=== PATIENT | female | born 1935 | race Caucasian/White ===

== ENCOUNTER 2016-10-05 23:55 | Outpatient (CLI) | payer MEDICARE, BC | END 2016-10-05 23:56 | disposition critical access hospital (66) | LOC: EMS 23:55 | PROVIDERS: ATTEND Surgery | DX: R07.9 Chest pain, unspecified (principal) | CPT/HCPCS: A0425; A0427 ==

== ENCOUNTER 2016-10-06 00:07 | Observation (INO) | payer MEDICARE, BC ==
--- NOTE | 2016-10-06 00:07 | ED Physician Documentation ---
PD HPI CHEST PAIN - Stated complaint Stated Complaint: CP - History obtained from History obtained from: Patient - History of Present Illness Timing - onset: Enter time (20:00), Today Timing - onset during: Rest Timing - duration: Hours Timing - details: Abrupt onset, Waxing and waning Pain level max: 6 Pain level now: 6 Quality: Pain Location: Substernal Radiation: Back Improved by: Nothing Worsened by: Inspiration, Palpation Associated symptoms: General Weakness. No: Shortness of air, Diaphoresis, Nausea, Vomiting, Feeling faint / dizzy, Palpitations, Cough Similar symptoms before: Has not had sx before Recently seen: Not recently seen Review of Systems Constitutional: reports: Reviewed and negative Eyes: reports: Reviewed and negative Ears: reports: Reviewed and negative Nose: reports: Reviewed and negative Throat: reports: Reviewed and negative Cardiac: reports: Chest pain / pressure. denies: Palpitations, Calf pain Respiratory: reports: Reviewed and negative GI: reports: Reviewed and negative : denies: Dysuria, Frequency Neurologic: reports: Generalized weakness. denies: Focal weakness, Numbness PD PAST MEDICAL HISTORY - Past Medical History Past Medical History: Yes Cardiovascular: Hypertension - Past Surgical History Past Surgical History: No - Present Medications Home Medications: Ambulatory Orders Medication Instructions Recorded Confirmed Losartan [Cozaar] 25 mg ORAL DAILY 03/22/14 10/06/16 Metoprolol Tartrate 12.5 mg ORAL DAILY 03/22/14 10/06/16 Aspirin [Yusuf] 325 mg PO QID PRN #0 tablet 10/06/16 Rosuvastatin Calcium 5 mg PO QPM 10/06/16 10/06/16 - Allergies Allergies/Adverse Reactions: Allergies Allergy/AdvReac Type Severity Reaction Status Date / Time acetaminophen [From Tylenol] Allergy Unknown Verified 10/06/16 00:21 amoxicillin [Amoxicillin] Allergy Unknown Verified 10/06/16 00:21 codeine Allergy Respiratory Verified 10/06/16 00:21 doxycycline Allergy Respiratory Verified 10/06/16 00:21 doxylamine Allergy Respiratory Verified 10/06/16 00:21 erythromycin base Allergy Respiratory Verified 10/06/16 00:21 [Erythromycin Base] fluticasone propionate * Allergy Unknown Verified 10/06/16 00:21 [From Flonase] hydromorphone HCl * Allergy Unknown Verified 10/06/16 00:21 [From Dilaudid] latex Allergy Unknown Verified 10/06/16 00:21 levofloxacin Allergy Respiratory Verified 10/06/16 00:21 methadone [Methadone] Allergy Respiratory Verified 10/06/16 00:21 morphine Allergy Respiratory Verified 10/06/16 00:21 nitroglycerin Allergy Unknown Verified 10/06/16 00:21 omeprazole Allergy Respiratory Verified 10/06/16 00:21 oxycodone HCl * Allergy Respiratory Verified 10/06/16 00:21 [From OxyContin] Penicillins Allergy Respiratory Verified 10/06/16 00:21 petrolatum,white * Allergy Respiratory Verified 10/06/16 00:21 [From Petroleum Jelly] propoxyphene HCl * Allergy Respiratory Verified 10/06/16 00:21 [From Darvon] Sulfa (Sulfonamide Allergy Respiratory Verified 10/06/16 00:21 Antibiotics) tramadol Allergy Respiratory Verified 10/06/16 00:21 "all morphine derivatives" Allergy Unknown Uncoded 10/06/16 00:21 dust Allergy Unknown Uncoded 06/07/14 10:09 mold Allergy Unknown Uncoded 06/07/14 10:09 smoke Allergy Unknown Uncoded 06/07/14 10:09 PD ED PE NORMAL - Vitals Vital signs reviewed: Yes - General General: Alert and oriented X 3, No acute distress, Well developed/nourished - HEENT HEENT: Moist mucous membranes - Neck Neck: Supple, no meningeal sign - Cardiac Cardiac: RRR, No murmur, No gallop, No rub - Respiratory Respiratory: No respiratory distress, Clear bilaterally - Abdomen Abdomen: Normal bowel sounds, Soft, Non tender, Non distended - Back Back: No CVA TTP - Derm Derm: Normal color, Warm and dry - Extremities Extremities: No edema - Neuro Neuro: Alert and oriented X 3 Results - Vitals Vitals: Oxygen O2 Source [With Activity] Room air O2 Source Room air Oxygen Flow Rate 2 - EKG (time done) No standard instances Rate: Rate (enter#) (63) Rhythm: NSR [place]: Normal Intervals: Normal OR QRS: Normal Ischemia: Normal ST segments - Labs Labs: Laboratory Tests 10/06/16 10/06/16 10/06/16 00:50 00:50 00:50 WBC 8.6 RBC 3.88 L Hgb 11.4 L Hct 34.4 L MCV 88.6 MCH 29.4 MCHC 33.1 RDW 15.2 H Plt Count 218 MPV 9.6 Neut # 6.1 Lymph # 0.8 L [place] # 1.0 Eos # 0.6 Baso # 0.1 Absolute Nucleated RBC 0.00 Nucleated RBCs 0.0 PT 11.8 INR 1.0 APTT 22.0 L D-Dimer 383.6 H Sodium 138 Potassium 3.3 L Chloride 104 Carbon Dioxide 25 Anion Gap 9.0 BUN 30 H Creatinine 1.1 H Estimated GFR (MDRD) 48 L Glucose 135 H Calcium 8.6 Total Bilirubin 0.3 AST 20 ALT 14 Alkaline Phosphatase 86 Troponin I Total Protein 6.9 Albumin 3.2 Globulin 3.7 Albumin/Globulin Ratio 0.9 L Lipase 14 L 10/06/16 00:50 WBC RBC Hgb Hct MCV MCH MCHC RDW Plt Count MPV Neut # Lymph # [place] # Eos # Baso # Absolute Nucleated RBC Nucleated RBCs PT INR APTT D-Dimer Sodium Potassium Chloride Carbon Dioxide Anion Gap BUN Creatinine Estimated GFR (MDRD) Glucose Calcium Total Bilirubin AST ALT Alkaline Phosphatase Troponin I < 0.04 Total Protein Albumin Globulin Albumin/Globulin Ratio Lipase - Rads (name of study) chest xray Radiology: Prelim report reviewed, See rad report PD MEDICAL DECISION MAKING - ED course Complexity details: reviewed results, re-evaluated patient, considered differential, d/w patient, d/w family Departure - Departure Disposition: ED Place in Observation Clinical Impression: Chest pain Condition: Fair Discharge Date/Time: 10/06/16 06:56
--- NOTE | 2016-10-06 01:07 | XRAY Preliminary Report ---
Exam: XR Chest 2 View PA/LAT IMPRESSION: 1. Interstitial densities noted at the left lung base. No consolidation. 2. No pneumothorax or effusion. 3. Focal ovoid hyperdensity projects over the anterior right fourth rib possibly due to a fracture or nodule. Findings can be confirmed by CT on a nonemergent basis. [facility] SITE ID: [id number]
--- NOTE | 2016-10-06 01:10 | XRAY Report ---
EXAM: CHEST RADIOGRAPHY EXAM DATE: 10/06/2016 12:49 AM. CLINICAL HISTORY: Chest pain. COMPARISON: 04/08/2014. TECHNIQUE: 2 views. FINDINGS: Lungs/Pleura: Decreased volumes. Mild interstitial prominence is noted at the bases. No large effusio ns or pneumothorax. Mediastinum: Ectatic thoracic aorta. Stable cardiac silhouette. Other: Ovoid density measuring 1.7 cm projects over the anterior right fourth rib. EKG leads overlie the chest. IMPRESSION: 1. Interstitial densities noted at the left lung base. No consolidation. 2. No pneumothorax or effusion. 3. Focal ovoid hyperdensity projects over the anterior right fourth rib possibly due to a fracture or nodule. Findings can be confirmed by CT on a nonemergent basis. [facility] Referring Provider Line: [phone] SITE ID: [id number]
[2016-10-06 01:11] LABS: BASOPHILS # (AUTO) 0.1 10^3/uL (0.0-0.1); BASOPHILS % (AUTO) 1.1 %; EOSINOPHILS # (AUTO) 0.6 10^3/uL (0.0-0.7); EOSINOPHILS % (AUTO) 6.4 %; HCT - HEMATOCRIT 34.4 % (37.0-47.0); HGB - HEMOGLOBIN 11.4 g/dL (12.0-16.0); LYMPHOCYTES # (AUTO) 0.8 10^3/uL (1.5-3.5); LYMPHOCYTES % (AUTO) 9.8 %; MEAN CORPUSCULAR HEMOGLOBIN 29.4 pg (27.0-31.0); MEAN CORPUSCULAR HGB CONC 33.1 g/dL (32.0-36.0); MEAN CORPUSCULAR VOLUME 88.6 fL (81.0-99.0); MEAN PLATELET VOLUME 9.6 fL (7.9-10.8); MONOCYTES % (AUTO) 12.2 %; NEUTROPHILS # (AUTO) 6.1 10^3/uL (1.5-6.6); NEUTROPHILS % (AUTO) 70.5 %; RED BLOOD COUNT 3.88 10^6/uL (4.20-5.40); RED CELL DISTRIBUTION WIDTH 15.2 % (12.0-15.0); UNCORRECTED WHITE BLOOD COUNT 8.6 x10^3/uL; WHITE BLOOD COUNT 8.6 x10^3/uL (4.8-10.8)
[2016-10-06 01:18] LABS: D-DIMER 383.6 ng/mL (200.0-255.0)
[2016-10-06 01:24] LABS: PT - PROTHROMBIN TIME 11.8 secs (9.9-12.6)
[2016-10-06 01:26] LABS: ALBUMIN/GLOBULIN RATIO 0.9 (1.0-2.2); BILIRUBIN,TOTAL 0.3 mg/dL (0.2-1.0); CALCIUM 8.6 mg/dL (8.5-10.3); CREATININE 1.1 mg/dL (0.4-1.0); POTASSIUM 3.3 mmol/L (3.5-5.0); TOTAL PROTEIN 6.9 g/dL (6.7-8.2)
[2016-10-06] MEDS ORDERED: HYDROmorphone 1 MG/ML SYRINGE IVP STA ×3 (01:55→05:25)
[2016-10-06] MEDS ORDERED: HYDROmorphone 1 MG/ML SYRINGE ONE ×2 (01:59→02:50)
[2016-10-06] MEDS ORDERED: IOPAMIDOL-300 100 ML VIAL IVP ONE (02:51)
--- NOTE | 2016-10-06 03:23 | CT Preliminary Report ---
Exam: CT Chest Angio (AORTA) IMPRESSION: 1. Stable 4.1 cm ascending thoracic aneurysm. No evidence of enlargement, dissection or rupture. 2. No acute pulmonary disease. 3. Interval C7 vertebral compression fracture. Remote T7, T10, and T12 vertebral fractures. 4. Interval right third and fourth anterior and left T11 posterior rib fractures. [facility] SITE ID: [id number]
--- NOTE | 2016-10-06 03:26 | CT Report ---
<H1.> EXAM: CT ANGIOGRAM CHEST EXAM DATE: 10/06/2016 02:51 AM. CLINICAL HISTORY: Chest pain, h/o thoracic aortic aneurysm. COMPARISONS: None. TECHNIQUE: Routine axial helical CT angiographic imaging was performed through the chest, abdomen, and pelvis. I V Contrast: 100 mL Isovue 300. Reconstructions: Coronal, sagittal reconstructions of the chest. In accordance with CT protocol optimization, one or more of the following dose reduction techniques w ere utilized for this exam: automated exposure control, adjustment of mA and/or KV based on patient s ize, or use of iterative reconstructive technique. FINDINGS: Vascular Structures: Again there is dilatation of the ascending thoracic aorta which measures up to 4 .1 cm in diameter, unchanged. There is no evidence of dissection. The visualized pulmonary, mesenteri c, and solid organ vascular structures are also within normal limits. Lungs/Pleura: No consolidation, nodules, or edema. There is bilateral dependent atelectasis. No effus ions or pneumothorax. Mediastinum: Normal. No cardiac enlargement or adenopathy. Upper abdominal cavity: Arterial phase imaging of upper abdominal organs normal. Status post cholecys tectomy. Mild celiac origin stenosis.. No free fluid, free air, or acute inflammatory process. Bones: Again there is osteopenia in patient status post prior T11 vertebral augmentation. There is st able wedging deformity of T12 vertebral body. There is new sclerosis involving T8 and T9 inferior end plates. There is new intra-right loss and sclerosis of superior endplate of C7. There are multiple he aled posterior right-sided rib fractures. There is a healed left posterior T11 rib fracture. There ar e healed right third and fourth anterior rib fractures. Other: None. IMPRESSION: 1. Stable 4.1 cm ascending thoracic aneurysm. No evidence of enlargement, dissection or rupture. 2. No acute pulmonary disease. 3. Interval C7 vertebral compression fracture. Remote T7, T10, and T12 vertebral fractures. 4. Interval right third and fourth anterior and left T11 posterior rib fractures. [facility] Referring Provider Line: [phone] SITE ID: [id number]
[2016-10-06] MEDS ORDERED: MAG HYDROX/AL HYDROX/SIMETH 30 ML UDC PO STA (03:56)
[2016-10-06] MEDS ORDERED: LIDOCAINE VISCOUS 2% 15 ML UDC MM STA (03:56)
[2016-10-06] MEDS ORDERED: LIDOCAINE VISCOUS 2% 15 ML UDC MM ONE (04:00)
[2016-10-06] MEDS ORDERED: MAG HYDROX/AL HYDROX/SIMETH 30 ML UDC ONE (04:00)
[2016-10-06] MEDS ORDERED: ASPIRIN 325 MG TABLET PO PRN (05:24)
[2016-10-06] MEDS ORDERED: ACETAMINOPHEN 325 MG TABLET PO PRN (05:25)
[2016-10-06] MEDS ORDERED: SODIUM CHLORIDE FLUSH 0.9% 10 ML SYRINGE IVP PRN (05:25)
[2016-10-06] MEDS ORDERED: ONDANSETRON ODT 4 MG TABLET TL PRN (05:25)
[2016-10-06] MEDS ORDERED: IBUPROFEN 600 MG TABLET PO STA (05:41)
[2016-10-06] MEDS ORDERED: HYDROmorphone 1 MG/ML SYRINGE IVP PRN (05:43)
--- NOTE | 2016-10-06 05:57 | HISTORY & PHYSICAL EXAMINATION ---
Chief Complaint - Chief Complaint Chief Complaint: Chest pain radiating to the back Chest Pain Admission HPI - Admitted From Admitted from: ED - History Obtained From Records Reviewed: Old records reviewed History obtained from: Patient, Family, Other (ER M.D.) Exam limitations: No limitations, Other (heart of hearing) - History of Present Illness HPI Comment/Other: this 81-year-old female presents to the emergency room complaining of chest pain. She and her report that she developed pain in her lower sternum around 8 PM last night. She describes it as 8/10, and non-radiating, although she also has back pain, which she feels is unrelated.she notes the pain is worse with deep breathing,, but describes it as aching in nature it has been unrelenting since last night. Aspirin last night did not seem to help much. GI cocktail had no impact. We are unable to give her nitroglycerin regarding allergies. She recently resumed treatment for multiple myeloma, with daily Revlimid, 3 weeks on, 1 week off. Her reports she gets Decadron every Saturday, and IV Zometa every 3 months. She is followed by Dr. Jose Sotelo at [facility]. Otherwise, she reports chronic dizziness and ear pain related to Mnire's disease, as well as hearing loss. She denies headache, new eye symptoms. Her throat is mildly sore today, but she reports no change in chronic cough. She denies other chest discomfort, or radiation of her pain. She denies recent reflux. She did have some abdominal discomfort today after IV dye, which resolved after GI cocktail. She denies recent nausea or vomiting. She has chronic intermittent diarrhea and constipation. She denies dysuria. she does not report swollen glands,, or new joint pain or swelling,, or skin rashes. she cannot recall her symptoms from when she had a previous PE. She does not think current symptoms are similar to previous OR. ER workup also shows low potassium and mild dehydration. The patient's reports she is terrible about drinking adequate fluids, complaining that most bother her stomach. Past medical history: Left femur fracture, May 2014, also right hip fracture. History of UTI History of multiple myeloma History of DVT and PE History of asthma Distant history of coronary artery disease, OR Osteoporosis Aortic aneurysm Herpes zoster past surgical history: Bilateral ORIF of hips, cholecystectomy, spinal surgery, hysterectomy medications: metoprolol 25 mg twice a day Losartan 25 mg daily Revlamid 10 mg daily Decadron 40 mg Aspirin 325 mg 4 times a day when necessary Aspirin 81 mg daily B complex daily Calcium plus D2 daily Beta Zometa IV every 3 months Crestor daily Allergies: Acetaminophen Codeine oxycodone Methadone Morphine Tramadol Amoxicillin Darvon Penicillin Sulfa Doxycycline Erythromycin Levaquin doxylamine Omeprazole Petroleum Dust Mold smoke Latex Social history: The patient was born in [place]. Worked for [employer]. denies history of tobacco, alcohol, drug use. She is and had 3 children. Family history: Positive for heart disease in her father.,she says she really does not know her biological family or their health history. 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: positive: Hysterectomy Social & Family Hx - Social History Does the pt smoke?: No Smoking Status: Never smoker Does the pt drink ETOH?: No Does the pt have substance abuse?: No - POLST Patient has POLST: No Meds/Allgy - Home Medications Home Medications: Ambulatory Orders Medication Instructions Recorded Confirmed Aspirin [Yusuf] 325 mg ORAL QID PRN 03/22/14 10/06/16 Beta-Carotene [Beta Carotene] 1 tab ORAL DAILY 03/22/14 10/06/16 Calcium Carbonate/Vitamin D3 2 tab ORAL DAILY 03/22/14 10/06/16 [Calcium 600 + Vit D3 Tablet] Losartan [Cozaar] 25 mg ORAL DAILY 03/22/14 10/06/16 Metoprolol Tartrate 25 mg ORAL BID 03/22/14 10/06/16 Vitamin B Complex Vit C No.4 1 tab ORAL DAILY 03/22/14 10/06/16 [Super B Complex] Dexamethasone [Decadron] 40 mg PO ONCE 10/06/16 10/06/16 Lenalidomide [Revlimid] 10 mg ORAL ONCE 10/06/16 10/06/16 - Allergies Allergies/Adverse Reactions: Allergies Allergy/AdvReac Type Severity Reaction Status Date / Time acetaminophen [From Tylenol] Allergy Unknown Verified 10/06/16 00:21 amoxicillin [Amoxicillin] Allergy Unknown Verified 10/06/16 00:21 codeine Allergy Respiratory Verified 10/06/16 00:21 doxycycline Allergy Respiratory Verified 10/06/16 00:21 doxylamine Allergy Respiratory Verified 10/06/16 00:21 erythromycin base Allergy Respiratory Verified 10/06/16 00:21 [Erythromycin Base] fluticasone propionate * Allergy Unknown Verified 10/06/16 00:21 [From Flonase] hydromorphone HCl * Allergy Unknown Verified 10/06/16 00:21 [From Dilaudid] latex Allergy Unknown Verified 10/06/16 00:21 levofloxacin Allergy Respiratory Verified 10/06/16 00:21 methadone [Methadone] Allergy Respiratory Verified 10/06/16 00:21 morphine Allergy Respiratory Verified 10/06/16 00:21 nitroglycerin Allergy Unknown Verified 10/06/16 00:21 omeprazole Allergy Respiratory Verified 10/06/16 00:21 oxycodone HCl * Allergy Respiratory Verified 10/06/16 00:21 [From OxyContin] Penicillins Allergy Respiratory Verified 10/06/16 00:21 petrolatum,white * Allergy Respiratory Verified 10/06/16 00:21 [From Petroleum Jelly] propoxyphene HCl * Allergy Respiratory Verified 10/06/16 00:21 [From Darvon] Sulfa (Sulfonamide Allergy Respiratory Verified 10/06/16 00:21 Antibiotics) tramadol Allergy Respiratory Verified 10/06/16 00:21 "all morphine derivatives" Allergy Unknown Uncoded 10/06/16 00:21 dust Allergy Unknown Uncoded 06/07/14 10:09 mold Allergy Unknown Uncoded 06/07/14 10:09 smoke Allergy Unknown Uncoded 06/07/14 10:09 Exam - Vital Signs Reviewed Vital Signs: Yes Vital Signs: Vital Signs x48h Temp Pulse Resp BP BP BP Pulse Ox 10/06/16 04:45 54 L 15 113/50 L 91 L 10/06/16 04:06 65 18 103/46 L 95 10/06/16 03:03 58 L 21 128/56 L 95 10/06/16 02:44 64 17 131/60 H 98 10/06/16 02:08 65 20 100/49 L 92 10/06/16 01:40 66 18 121/54 L 100 10/06/16 00:24 69 21 114/54 L 137/61 H 114/54 L 95 10/06/16 00:08 36.9 C 68 20 137/61 H 97 on exam, she is a well-developed and well-nourished elderly female in no obvious distress. She is extremely hard of hearing.. Head: Normocephalic, atraumatic. Eyes: PERR LA, EOMI, anicteric, normal conjunctiva. Ears: Normal TMs and canals, with significant hearing loss. Pharynx: Teeth are in good repair. Posterior pharynx appears normal. Neck: Is supple, without obvious lymphadenopathy, JVD, thyromegaly, bruits. Cardiac exam: Shows regular rate and rhythm, with normal S1 and S2,, without obvious murmurs, rubs, gallops. lower sternum is quite tender to palpation. Lungs: breath sounds Are somewhat decreased at the bases, related to patient's reluctance to deep breathe.otherwise, lungs are clear, without obvious rales, rhonchi, wheezes. Abdomen: Is soft, and minimally tender, without obvious masses.. Bowel sounds are active. There is no guarding or rebound. Extremities: Show no cyanosis, clubbing, edema. Pulses are intact. Neurologic exam: The patient is alert and oriented. Cranial nerves and motor exam are grossly nonfocal. Skin exam: Shows no obvious rashes or other worrisome lesions. Results - Lab Results Fish Bones: 10/06/16 00:50 10/06/16 00:50 Other Lab Results: Lab Results x24hrs 10/06/16 10/06/16 10/06/16 Range/Units 00:50 00:50 00:50 WBC (4.8-10.8) x10^3/uL RBC (4.20-5.40) 10^6/uL Hgb (12.0-16.0) g/dL Hct (37.0-47.0) % MCV (81.0-99.0) fL MCH (27.0-31.0) pg MCHC (32.0-36.0) g/dL RDW (12.0-15.0) % Plt Count (130-450) 10^3/uL MPV (7.9-10.8) fL Neut # (1.5-6.6) 10^3/uL Lymph # (1.5-3.5) 10^3/uL [place] # (0.0-1.0) 10^3/uL Eos # (0.0-0.7) 10^3/uL Baso # (0.0-0.1) 10^3/uL Absolute Nucleated RBC x10^3/uL Nucleated RBCs /100WBC PT 11.8 (9.9-12.6) secs INR 1.0 (0.8-1.2) APTT 22.0 L (24.9-33.3) secs D-Dimer 383.6 H (200.0-255.0) ng/mL Sodium 138 (135-145) mmol/L Potassium 3.3 L (3.5-5.0) mmol/L Chloride 104 (101-111) mmol/L Carbon Dioxide 25 (21-32) mmol/L Anion Gap 9.0 (6-13) BUN 30 H (6-20) mg/dL Creatinine 1.1 H (0.4-1.0) mg/dL Estimated GFR (MDRD) 48 L (>89) Glucose 135 H (70-100) mg/dL Calcium 8.6 (8.5-10.3) mg/dL Total Bilirubin 0.3 (0.2-1.0) mg/dL AST 20 (10-42) IU/L ALT 14 (10-60) IU/L Alkaline Phosphatase 86 (42-121) IU/L Troponin I < 0.04 (<0.49) ng/mL Total Protein 6.9 (6.7-8.2) g/dL Albumin 3.2 (3.2-5.5) g/dL Globulin 3.7 (2.1-4.2) g/dL Albumin/Globulin Ratio 0.9 L (1.0-2.2) Lipase 14 L (22-51) U/L 10/06/16 Range/Units 00:50 WBC 8.6 (4.8-10.8) x10^3/uL RBC 3.88 L (4.20-5.40) 10^6/uL Hgb 11.4 L (12.0-16.0) g/dL Hct 34.4 L (37.0-47.0) % MCV 88.6 (81.0-99.0) fL MCH 29.4 (27.0-31.0) pg MCHC 33.1 (32.0-36.0) g/dL RDW 15.2 H (12.0-15.0) % Plt Count 218 (130-450) 10^3/uL MPV 9.6 (7.9-10.8) fL Neut # 6.1 (1.5-6.6) 10^3/uL Lymph # 0.8 L (1.5-3.5) 10^3/uL [place] # 1.0 (0.0-1.0) 10^3/uL Eos # 0.6 (0.0-0.7) 10^3/uL Baso # 0.1 (0.0-0.1) 10^3/uL Absolute Nucleated RBC 0.00 x10^3/uL Nucleated RBCs 0.0 /100WBC PT (9.9-12.6) secs INR (0.8-1.2) APTT (24.9-33.3) secs D-Dimer (200.0-255.0) ng/mL Sodium (135-145) mmol/L Potassium (3.5-5.0) mmol/L Chloride (101-111) mmol/L Carbon Dioxide (21-32) mmol/L Anion Gap (6-13) BUN (6-20) mg/dL Creatinine (0.4-1.0) mg/dL Estimated GFR (MDRD) (>89) Glucose (70-100) mg/dL Calcium (8.5-10.3) mg/dL Total Bilirubin (0.2-1.0) mg/dL AST (10-42) IU/L ALT (10-60) IU/L Alkaline Phosphatase (42-121) IU/L Troponin I (<0.49) ng/mL Total Protein (6.7-8.2) g/dL Albumin (3.2-5.5) g/dL Globulin (2.1-4.2) g/dL Albumin/Globulin Ratio (1.0-2.2) Lipase (22-51) U/L a CT angiogram chest: Stable 4.1 cm descending thoracic aneurysm, without evidence of dissection. No acute pulmonary disease Interval C7 vertebral compression fracture.. Remote T7, T10, T12 fractures. Interval right third and fourth anterior and left T11 posterior rib fracture, healed. bilateral deep tendon atelectasis chest x-ray: A focal ovoid density over the right fourth rib,, likely due to fracture.interstitial prominence noted at lung bases. EKG: Shows normal sinus rhythm at a rate of 63, normal axis, no acute ischemic changes are noted. ARRA - Anticipated LOS Anticipated Stay Length: Less than 2 midnights - AMI - Statin at Admit Aspirin Prescribed on Admit: Yes - DVT/VTE - Prophylaxis VTE/DVT Device ordered at admit?: Yes CP/CHF Plan - Echo Plan to order an echo?: No - Plan Patient Problems: All Active Problems Anemia (Acute) Chest pain (Acute) Fall on same level from slipping, tripping or stumbling (Acute) Fracture, intertrochanteric, left femur (Acute) Headache (Acute) Herpes zoster (Acute) Hypotension (Acute) Multiple myeloma (Acute) Shoulder pain, left (Acute) Tachycardia (Acute) UTI (lower urinary tract infection) (Acute) Plan: #1. Chest pain. This patient presents with chest pain which has associated chest wall tenderness components. She has known coronary disease history, as well as a history of aneurysm. she does have multiple myeloma, and evidence of numerous rib and vertebral fractures on CAT scan. These may be playing a role in her chest pain. also past history of DVT/PE. her physical exam seems most consistent with costochondritis.however, she could certainly have myeloma related bone disease, and or pain related to chemotherapy regimen.. -admit to observation, telemetry. -Repeat cardiac enzymes and EKG to rule out OR. -consider contacting oncology,, to see if increased steroids might be in order. Continue when necessary extra doses aspirin, as NSAIDs may not be appropriate for her. -She could also possibly have esophagitis, but does not give a great history for this. -Dilaudid was tolerated in the emergency room, despite numerous allergies. use Dilaudid and aspirin when necessary. -her notes she does take Crestor at home for history of coronary disease. -Continue losartan and metoprolol. And aspirin. #2. Renal. Evidence of mild dehydration and hypokalemia. correct With IV fluids. repeat labs at noon. -patient is encouraged to come up with other ways to keep herself hydrated. #3. Pulmonary. Positive d-dimer,, but CT scan did not show PE. Continue daily aspirin. -Reported history of asthma. She does not appear to use medications at home. #4.multiple myeloma. Continue Revlimid.also Decadron, and Zometa. Followup with oncology. #5. Osteoporosis. -continue Zometa. Continue calcium and vitamin D. --History of numerous rib, spine, hip fractures. #6. History of herpes zoster. watch for rash, as this may be contributing to chest pain. #7. DVT prophylaxis: Subcutaneous heparin. Continue aspirin. Mobilize. #8. CODE STATUS: patient would like to be a full code for now. This was reviewed with she and her . They believe she also has a living will,, but cannot recall exactly what it says. #9. Mnire's disease. Stable. #10. GI. Pepcid for GI prophylaxis. this visit took approximately 60 minutes, to review her old records, review her case with the ER Shannon,, interviewed the patient and her husba, examiner, and write orders.
[2016-10-06] MEDS ORDERED: POTASSIUM CHLORIDE INJ 40 MEQ in SODIUM CHLORIDE 0.45% 1,000 ML IV SCH (06:00)
[2016-10-06 07:07] LABS: CALCIUM 8.2 mg/dL (8.5-10.3); CREATININE 1.2 mg/dL (0.4-1.0); POTASSIUM 3.9 mmol/L (3.5-5.0)
[2016-10-06] MEDS: HEPARIN 5,000 UNIT/ML VIAL SUBQ SCH (08:18)
[2016-10-06] MEDS: FAMOTIDINE 20 MG TABLET PO SCH ×2 (08:19→09:11)
[2016-10-06] MEDS: SODIUM CHLORIDE FLUSH 0.9% 10 ML SYRINGE IVP SCH ×2 (08:19→13:14)
[2016-10-06] MEDS: METOPROLOL TARTRATE 25 MG TABLET PO SCH ×2 (08:19→09:06)
[2016-10-06] MEDS: LOSARTAN 50 MG TABLET PO SCH ×2 (08:19→09:11)
[2016-10-06] MEDS ORDERED: POLYETHYLENE GLYCOL 3350 17 GM PACKET PO SCH (09:00)
[2016-10-06] MEDS ORDERED: CALCIUM CARBONATE PO SCH (09:00)
[2016-10-06] MEDS ORDERED: VITAMIN D3 PO SCH (09:00)
[2016-10-06] MEDS ORDERED: BETA CAROTENE PO SCH (09:00)
[2016-10-06] MEDS ORDERED: LIDOCAINE PATCH 5% TOP PRN (12:37)
[2016-10-06 13:33] VITALS: BP 99/60
--- NOTE | 2016-10-06 15:16 | Discharge Plan ---
Discharge Plan Disposition: 01 Home, Self Care Condition: Fair Diet: Regular Activity Restrictions: Activity as Tolerated Shower Restrictions: No Driving Restrictions: No Additional Instructions or Follow Up instructions: Use heat of and on 30-60 min on and 2HRS off While awake. Take Tylenol or Ibuprofen as needed. F/U with your PCP in the next week. No Smoking: If you smoke, Please STOP! Call for help. Follow-up with: Luis Antonio Mckeon MD [Primary Care Provider] - 1 Week
--- NOTE | 2016-10-06 22:12 | DISCHARGE SUMMARY ---
DATE OF ADMISSION: 10/06/2016 DATE OF DISCHARGE: 10/06/2016 PRIMARY CARE PHYSICIAN: Dr. Mckeon ADMISSION DIAGNOSES 1. Chest pain. 2. Mild dehydration and hypokalemia. 3. Positive D-dimer but CTA negative. 4. Multiple myeloma. 5. Osteoporosis. 6. Herpes zoster. 7. Meniere disease. DISCHARGE DIAGNOSES 1. Chest pain, myocardial infarction ruled out. 2. Dehydration and hypokalemia, improved. 3. Multiple myeloma. 4. Osteoporosis. 5. History of herpes zoster. 6. Meniere disease, quiescent. SPECIAL PROCEDURES: CTA shows no pulmonary embolus. CONSULTATIONS: None. HOSPITAL COURSE AND MANAGEMENT: Initial presentation, hospital plan are well described in history and physical by Dr. Fernandez, see copy of same. The patient had continued chest pain, especially with kaila p breath. The patient had serial enzymes, troponin negative x3. The patient's pain was central upper chest with right focal tenderness described as the location of pain. The patient has severe hearing d eficit and needed to be queried multiple times to be assured of a reliable answer. The patient's husb and was interviewed as well and agreed with the assessment and disposition. The patient is discharged home, to use heat on the chest, Tylenol, or ibuprofen, since she has lots of allergies. It was verif ied that she could take Tylenol. The patient was examined at the time of discharge and found to be re jose for discharge. Time spent: Less than 30 minutes. The patient is to follow up with her PCP, and s he is to take her usual medications. MEDICATIONS 1. Revlimid 10 mg tablet. 2. Vitamin B complex daily. 3. Beta carotene daily. 4. Aspirin 325 mg q.i.d. as needed. 5. Rosuvastatin 5 mg a day. 6. Metoprolol 12.5 a day. 7. Losartan 25 mg a day. FOLLOWUP: The patient is to follow up with Dr. Mckeon, as noted above. Issues will be the chest keerthi n and any further symptoms or problems with this chest pain as well as her overall well being with mu ltiple comorbidities including osteoporosis and multiple myeloma. JOB #: [id number] EXT JOB #:[id number]
== END 2016-10-06 15:00 | disposition home or self-care (01) ==
LOC: EDUNIT# → SUPCPDRO 00:07 → ED 00:07 → MS 05:25
PROVIDERS: ADMIT Internal Medicine; ATTEND Internal Medicine
DX: J98.11 Atelectasis (principal); R07.9 Chest pain, unspecified; E86.0 Dehydration; E87.6 Hypokalemia; C90.00 Multiple myeloma not having achieved remission; I25.10 Atherosclerotic heart disease of native coronary artery without angina pectoris; I10 Essential (primary) hypertension; I25.2 Old myocardial infarction; I71.2 Thoracic aortic aneurysm, without rupture; Z86.711 Personal history of pulmonary embolism; Z86.718 Personal history of other venous thrombosis and embolism; H81.09 Meniere's disease, unspecified ear; K59.09 Other constipation; K52.9 Noninfective gastroenteritis and colitis, unspecified; H91.93 Unspecified hearing loss, bilateral; J45.909 Unspecified asthma, uncomplicated; M80.08XD Age-related osteoporosis with current pathological fracture, vertebra(e), subsequent encounter for fracture with routine healing; Z82.49 Family history of ischemic heart disease and other diseases of the circulatory system; M19.90 Unspecified osteoarthritis, unspecified site; Z86.19 Personal history of other infectious and parasitic diseases; Z88.6 Allergy status to analgesic agent; Z88.1 Allergy status to other antibiotic agents; Z91.040 Latex allergy status; Z88.5 Allergy status to narcotic agent; Z88.0 Allergy status to penicillin; Z88.2 Allergy status to sulfonamides; Z88.8 Allergy status to other drugs, medicaments and biological substances; Z91.09 Other allergy status, other than to drugs and biological substances; Z79.82 Long term (current) use of aspirin; Z79.899 Other long term (current) drug therapy
CPT/HCPCS: 36415; 71020; 71275; 80048; 80053; 83690; 84484; 85025; 85379; 85610; 85730; 93005; 93010; 96374; 96376; 99284; 99285; A9270; G0378; J1170; Q0162; Q9967

== ENCOUNTER 2019-12-08 11:22 | Outpatient (CLI) | payer MEDICARE, BC | END 2019-12-08 11:23 | disposition critical access hospital (66) | LOC: EMS 11:22 | PROVIDERS: ATTEND Surgery | DX: R53.1 Weakness (principal); R51 Headache; W18.39XA Other fall on same level, initial encounter; Y92.002 Bathroom of unspecified non-institutional (private) residence as the place of occurrence of the external cause | CPT/HCPCS: A0425; A0429 ==

== ENCOUNTER 2019-12-08 11:33 | Observation (INO) | payer MEDICARE, BC ==
--- NOTE | 2019-12-08 12:10 | ED Physician Documentation ---
History of Present Illness - Stated complaint Stated Complaint: GLF - Chief complaint Chief Complaint: Neuro - History obtained from History obtained from: Patient - History of Present Illness Timing: Prior to arrival, How many hours ago (2) - Additonal information Additional information: 84-year-old female presents to the emergency department with chief complaint of a ground-level fall that occurred prior to arrival this morning. Patient reports that she was walking into the bathroom to change the waist can when all of a sudden her legs just gave out. She denies any sudden onset chest pain slurred speech facial droop arm weakness. Right now she feels okay and denies that she feels weak in her legs. She denies any LOC and remebers the event in their enterity We should noted that patient's was also brought to the emergency department at the same time for stroke like symptoms. Medical history is most significant for myeloma. Currently taking Revlimid. [facility]. pt reports that she takes the Revlimid only and daily vitamins. Denies taking any cardiac meds While here in the emergency department. Patient has been noted to have some bradycardic episodes with heart rates into the high 30s and low 40s. Patient remains quite awake and oriented. She denies chest pain or dyspnea. I asked patient if he had she has ever had a problem with her heart rate in the past and she is unsure. Review of Systems Constitutional: denies: Fever, Chills Cardiac: denies: Chest pain / pressure, Palpitations Respiratory: denies: Dyspnea, Cough GI: denies: Abdominal Pain, Nausea : denies: Dysuria, Frequency, Hesitancy Skin: denies: Rash, Lesions Musculoskeletal: denies: Neck pain, Back pain, Extremity swelling, Joint swelling Neurologic: reports: Generalized weakness. 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 - Present Medications Home Medications: Ambulatory Orders Medication Instructions Recorded Confirmed Losartan [Cozaar] 25 mg ORAL DAILY 03/22/14 10/06/16 Metoprolol Tartrate 12.5 mg ORAL DAILY 03/22/14 10/06/16 Aspirin [Yusuf] 325 mg PO QID PRN #0 tablet 10/06/16 Rosuvastatin Calcium 5 mg PO QPM 10/06/16 10/06/16 - Allergies Allergies/Adverse Reactions: Allergies Allergy/AdvReac Type Severity Reaction Status Date / Time acetaminophen [From Tylenol] Allergy Unknown Verified 12/08/19 11:43 amoxicillin [Amoxicillin] Allergy Unknown Verified 12/08/19 11:43 codeine Allergy Respiratory Verified 12/08/19 11:43 doxycycline Allergy Respiratory Verified 12/08/19 11:43 doxylamine Allergy Respiratory Verified 12/08/19 11:43 erythromycin base Allergy Respiratory Verified 12/08/19 11:43 [Erythromycin Base] fluticasone propionate * Allergy Unknown Verified 12/08/19 11:43 [From Flonase] hydromorphone HCl * Allergy Unknown Verified 12/08/19 11:43 [From Dilaudid] latex Allergy Unknown Verified 12/08/19 11:43 levofloxacin Allergy Respiratory Verified 12/08/19 11:43 methadone [Methadone] Allergy Respiratory Verified 12/08/19 11:43 morphine Allergy Respiratory Verified 12/08/19 11:43 nitroglycerin Allergy Unknown Verified 12/08/19 11:43 omeprazole Allergy Respiratory Verified 12/08/19 11:43 oxycodone HCl * Allergy Respiratory Verified 12/08/19 11:43 [From OxyContin] Penicillins Allergy Respiratory Verified 12/08/19 11:43 petrolatum,white * Allergy Respiratory Verified 12/08/19 11:43 [From Petroleum Jelly] propoxyphene HCl * Allergy Respiratory Verified 12/08/19 11:43 [From Darvon] Sulfa (Sulfonamide Allergy Respiratory Verified 12/08/19 11:43 Antibiotics) tramadol Allergy Respiratory Verified 12/08/19 11:43 "all morphine derivatives" Allergy Unknown Uncoded 12/08/19 11:43 dust Allergy Unknown Uncoded 12/08/19 11:43 mold Allergy Unknown Uncoded 12/08/19 11:43 smoke Allergy Unknown Uncoded 12/08/19 11:43 - Social History Does the pt smoke?: No Smoking Status: Never smoker Does the pt drink ETOH?: No Does the pt have substance abuse?: No - Immunizations Immunizations are current?: Yes - POLST Patient has POLST: No PD ED PE NORMAL - General General: Alert and oriented X 3, No acute distress, Well developed/nourished, Other (hard of hearing) - HEENT HEENT: PERRL, EOMI - Cardiac Cardiac: RRR, No murmur - Respiratory Respiratory: No respiratory distress - Abdomen Abdomen: Normal bowel sounds, Soft, Non tender - Back Back: No CVA TTP, No spinal TTP - Derm Derm: Normal color, No rash - Extremities Extremities: No deformity - Neuro Neuro: Alert and oriented X 3, inspector type 2-12 intact, No motor deficit, No sensory deficit, Other (able to raise legs in air and keep them there/ subjectively 5/5 motor strength BLE) Eye Opening: Spontaneous Motor: Obeys Commands Verbal: Oriented GCS Score: 15 Results - Vitals Vitals: Vital Signs - 24 hr 12/08/19 12/08/19 12/08/19 11:38 12:18 12:30 Temperature 36.6 C Heart Rate 69 38 L 40 L Respiratory 18 14 16 Rate Blood Pressure 168/63 H 152/61 H 135/87 H O2 Saturation 99 100 100 12/08/19 12/08/19 12/08/19 13:00 13:30 14:00 Temperature 37.0 C Heart Rate 36 L 46 L 47 L Respiratory 19 20 17 Rate Blood Pressure 152/51 H 144/87 H 137/68 H O2 Saturation 100 100 100 12/08/19 12/08/19 14:30 15:00 Temperature Heart Rate 43 L 44 L Respiratory 15 16 Rate Blood Pressure 148/52 H 145/53 H O2 Saturation 100 100 Oxygen O2 Source [] Room air O2 Source Room air - EKG (time done) 1247 Rate: Rate (enter#) (sinus bradycardia) Rhythm: Sinus bradycardia Aurelia: Normal Intervals: Normal PA QRS: Normal Ischemia: Normal ST segments Compare to prior EKG: Unchanged from prior EKG (previous EKG had HR 63 in 2017) Computer interpretation: Agree with computer 1411 Rate: Rate (enter#) (44) Rhythm: Sinus bradycardia Aurelia: Normal Intervals: Normal PA QRS: Normal Ischemia: Normal ST segments Compare to prior EKG: Unchanged from prior EKG Computer interpretation: Agree with computer - Labs Labs: Laboratory Tests 12/08/19 12/08/19 12/08/19 12:11 13:02 13:02 WBC 6.1 RBC 3.51 L Hgb 11.6 L Hct 35.6 L MCV 101.4 H MCH 33.0 H MCHC 32.6 RDW 15.9 H Plt Count 120 L MPV 11.9 H Neut # (Auto) 3.7 Lymph # (Auto) 0.9 L Anderson # (Auto) 1.0 Eos # (Auto) 0.3 Baso # (Auto) 0.1 Absolute Nucleated RBC 0.00 Nucleated RBC % 0.0 Sodium 141 Potassium 4.4 Chloride 105 Carbon Dioxide 28 Anion Gap 8.0 BUN 19 Creatinine 1.0 Estimated GFR (MDRD) 53 L Glucose 90 Lactic Acid Calcium 8.6 Total Bilirubin 1.2 H AST 20 ALT 16 Alkaline Phosphatase 68 Troponin I High Sens Total Protein 6.7 Albumin 3.4 Globulin 3.3 Albumin/Globulin Ratio 1.0 Lipase 25 Urine Color YELLOW Urine Clarity CLEAR Urine pH 7.5 Ur Specific Blevins 1.015 Urine Protein NEGATIVE Urine Glucose (UA) NEGATIVE Urine Ketones NEGATIVE Urine Occult Blood NEGATIVE Urine Nitrite NEGATIVE Urine Bilirubin NEGATIVE Urine Urobilinogen 0.2 (NORMAL) Ur Leukocyte Esterase TRACE H Urine RBC None Seen Urine WBC 4-5 Urine WBC Clumps PRESENT Ur Squamous Epith Cells MOD Squamous H Urine Bacteria Rare Ur Microscopic Review INDICATED Urine Culture Comments NOT INDICATED 12/08/19 12/08/19 12/08/19 13:02 13:02 14:25 WBC RBC Hgb Hct MCV MCH MCHC RDW Plt Count MPV Neut # (Auto) Lymph # (Auto) Anderson # (Auto) Eos # (Auto) Baso # (Auto) Absolute Nucleated RBC Nucleated RBC % Sodium Potassium Chloride Carbon Dioxide Anion Gap BUN Creatinine Estimated GFR (MDRD) Glucose Lactic Acid 1.6 Calcium Total Bilirubin AST ALT Alkaline Phosphatase Troponin I High Sens 23.1 H* 21.5 H* Total Protein Albumin Globulin Albumin/Globulin Ratio Lipase Urine Color Urine Clarity Urine pH Ur Specific Blevins Urine Protein Urine Glucose (UA) Urine Ketones Urine Occult Blood Urine Nitrite Urine Bilirubin Urine Urobilinogen Ur Leukocyte Esterase Urine RBC Urine WBC Urine WBC Clumps Ur Squamous Epith Cells Urine Bacteria Ur Microscopic Review Urine Culture Comments - Rads (name of study) CXR Radiology: Final report received (no acute cardiopulmonary pathology) PD MEDICAL DECISION MAKING - ED course Complexity details: reviewed results, re-evaluated patient, d/w patient ED course: 84-year-old female comes to the emergency department for evaluation after she felt like her legs gave out on her at home. - Patient's labs are reviewed in full. She has a mild anemia at 11.3, expected for age and condition. Her electrolytes are otherwise without significant abnormality. - Neurologically patient has no focal deficits. My suspicion for CVA is very low. Her urine is without markers of infection. Bradycardia: - Patient is noted to have runs of of decreased heart rate in the 30s and 40s while here in the emergency department. She has remained quite awake and is stable. Patient has been placed on skip load driver with pacer pads attached. - Initial troponin is 23.1. 324 of aspirin ordered - Repeat EKG unchanged. Trop is down to 21.5 - Patient will be brought into the hospital under observation for evaluation of symptomatic bradycardia. I have spoken with the hospitalist. Dr. Chaudhari who has agreed to see and evaluate patient Departure - Departure Disposition: ED Place in Observation Clinical Impression: Bradycardia Myeloma Qualifiers: Multiple myeloma remission status: unspecified Qualified Code(s): C90.00 - Multiple myeloma not having achieved remission
[2019-12-08 12:48] LABS: BILIRUBIN,URINE NEGATIVE (NEGATIVE); GLUCOSE, URINE (UA) NEGATIVE (NEGATIVE); KETONES,URINE (UA) NEGATIVE (NEGATIVE); LEUKOCYTE ESTERASE, URINE TRACE (NEGATIVE); NITRITE,URINE NEGATIVE (NEGATIVE); OCCULT BLOOD,URINE NEGATIVE (NEGATIVE); PH,URINE 7.5 PH (5.0-7.5); PROTEIN,URINE NEGATIVE (NEGATIVE); UROBILINOGEN,URINE 0.2 (NORMAL) E.U./dL (NORMAL)
[2019-12-08 12:50] LABS: CLARITY,URINE CLEAR (CLEAR)
[2019-12-08] MEDS ORDERED: SODIUM CHLORIDE 0.9% 1,000 ML IV STA (12:59)
[2019-12-08 13:02] LABS: BACTERIA,URINE Rare /HPF (None Seen); RBC,URINE None Seen /HPF (0-5); SQUAMOUS EPITHELIAL CELL,UR MOD Squamous (<= Few); WBC CLUMPS,URINE PRESENT
[2019-12-08 13:08] LABS: BASOPHILS # (AUTO) 0.1 10^3/uL (0.0-0.1); BASOPHILS % (AUTO) 1.1 %; EOSINOPHILS # (AUTO) 0.3 10^3/uL (0.0-0.7); EOSINOPHILS % (AUTO) 5.3 %; HGB - HEMOGLOBIN 11.6 g/dL (12.0-16.0); LYMPHOCYTES # (AUTO) 0.9 10^3/uL (1.5-3.5); LYMPHOCYTES % (AUTO) 15.3 %; MEAN CORPUSCULAR HGB CONC 32.6 g/dL (32.0-36.0); MEAN CORPUSCULAR VOLUME 101.4 fL (81.0-99.0); MEAN PLATELET VOLUME 11.9 fL (7.9-10.8); MONOCYTES % (AUTO) 17.1 %; NEUTROPHILS # (AUTO) 3.7 10^3/uL (1.5-6.6); NEUTROPHILS % (AUTO) 60.5 %; PLT - PLATELET COUNT 120 10^3/uL (130-450); RED BLOOD COUNT 3.51 10^6/uL (4.20-5.40); RED CELL DISTRIBUTION WIDTH 15.9 % (12.0-15.0); WHITE BLOOD COUNT 6.1 x10^3/uL (4.8-10.8)
[2019-12-08] MEDS ORDERED: ASPIRIN CHEW 81 MG TABLET PO STA (13:38)
[2019-12-08 13:42] LABS: BILIRUBIN,TOTAL 1.2 mg/dL (0.2-1.0); CALCIUM 8.6 mg/dL (8.5-10.3)
[2019-12-08 13:43] LABS: ALBUMIN 3.4 g/dL (3.2-5.5); TOTAL PROTEIN 6.7 g/dL (6.7-8.2)
--- NOTE | 2019-12-08 13:48 | XRAY Report ---
PROCEDURE: Chest 1 View X-Ray INDICATIONS: chest pain TECHNIQUE: One view of the chest was acquired. COMPARISON: CT angiogram of chest dated 10/06/2016 and chest radiograph dated 10/06/2016. FINDINGS: Surgical changes and devices: Possible pacing device is seen projecting over cardiac apex. Lungs and pleura: No pleural effusions or pneumothorax. Lungs are clear. Mediastinum: Mediastinal contours appear normal. Heart size is normal. Bones and chest wall: No suspicious bony lesions. Overlying soft tissues appear unremarkable. IMPRESSION: No acute cardiopulmonary pathology. Reviewed by: Apollo Willson MD on 12/08/2019 1:47 PM PDT Approved by: Apollo Willson MD on 12/08/2019 1:47 PM PDT Station ID: [id number]
[2019-12-08] MEDS ORDERED: SODIUM CHLORIDE FLUSH 0.9% 10 ML SYRINGE IVP PRN (15:27)
[2019-12-08] MEDS ORDERED: ONDANSETRON 4 MG/2 ML VIAL IVP PRN (15:28)
[2019-12-08] MEDS: SODIUM CHLORIDE FLUSH 0.9% 10 ML SYRINGE IVP SCH ×2 (16:28→23:53)
[2019-12-08] MEDS: LACTATED RINGERS 1,000 ML IV SCH (16:29)
--- NOTE | 2019-12-08 18:53 | HISTORY & PHYSICAL EXAMINATION ---
DATE OF SERVICE: 12/08/2019 Physician: Lisa Phillips MD HISTORY OF PRESENT ILLNESS: This is an 84-year-old white female who has a history of multiple myeloma and a remote history of coronary artery disease, according to her EMR. She used to be on Metoprolol, and she thinks that it was stopped sometime in her past because of bradycardia but does not know when. Metoprolol is still listed on her medication list. Today patient awoke and while walking in the house stated that she felt that her "legs gave out from under her" and she fell to the ground. She remembers the entire event and does not think she had syncope. She did not hit her head. An ambulance was called by her ; no ER run sheet is available to me to see her vital signs at the scene. She was brought to the emergency room by ambulance, where she had imaging done that showed no evidence of a stroke or any trauma or fracture. She was, however, found to have heart rates as low as the 30s and is being admitted for symptomatic bradycardia as a possible reason for her fall. PAST MEDICAL HISTORY 1. Multiple myeloma on Revlimid for many years, is followed at [facility] for this. The dose has not been recently changed. 2. Aspirin 325 mg p.r.n. pain. 3. Crestor 5 mg every night. FAMILY HISTORY: No inherited diseases. SOCIAL HISTORY: Patient has never smoked cigarettes, does not drink alcohol, lives with her . 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 She is very hard of hearing and reads lips. A comprehensive review of systems was performed, and the pertinent positives are listed, the rest are negative. PHYSICAL EXAMINATION GENERAL: Elderly white female. She appears cachectic and thin, but not in any distress. VITAL SIGNS: Blood pressure 140/50, heart rate 43 in sinus bradycardia, room air saturation 100%, afebrile. HEENT: Shows temporal wasting and sunken eyes. Oral mucosa is moist. NECK: No JVD in a vertical position. CHEST: Clear. HEART: Normal heart sounds. No murmur. ABDOMEN: Soft, nontender. EXTREMITIES: No clubbing, cyanosis, or edema. NEUROLOGIC: Hard of hearing, otherwise grossly intact. LABORATORY/DATA Normal electrolytes. Normal BUN and creatinine. Normal liver tests. Troponin- high sensitivity is 23 and on repeat 21. Lipase normal. White blood count 6.1, hemoglobin 11.6 with MCV of 101, platelet count 120. No INR was done. Urinalysis unremarkable. CHEST X-RAY: No acute cardiopulmonary pathology. EKG: Probable ectopic atrial rhythm at a rate of 50, early R/S transition. From 3 years ago, in 09/2016, her EKG showed a heart rate of 63, but was otherwise similar. IMPRESSION/DIAGNOSES 1. Symptomatic bradycardia. 2. Ground level fall at home, but without syncope apparently. 3. Macrocytic anemia. 4. Multiple myeloma, on immunotherapy. 5. Hard of hearing. PLAN: Place patient in Observation status on telemetry to monitor her heart rate. Do not dose any Metoprolol. In case she was actually still taking her Metoprolol, allow it to wash out over the next 24 hours. If there are symptomatic episodes noted here, a pacemaker would be indicated. Otherwise she may need further outpatient workup like a Holter monitor to evaluate for a pacemaker. This was discussed with patient, and she is agreeable. Obtain an Echo. Check orthostatic vital signs. Obtain B12 and folate levels, given the macrocytosis with anemia. Hold her Revlimid medications since there is a 20% side effect rate of dizziness, hypotension rate of 7%, and also a rare chance that Revlimid can cause bradycardia. Continue her statin medication. Her aspirin would be dosed one tablet daily for cardiovascular prophylaxis. CODE STATUS: FULL CODE. DEEP VENOUS PROPHYLAXIS: SCDS. ATTESTATION: Patient is expected to be discharged or transferred to another facility within 96 hours: Yes. TD: 12/08/2019 18:12 JACQUI
[2019-12-08] MEDS ORDERED: ATORVASTATIN 10 MG TABLET PO SCH (21:00)
[2019-12-08] MEDS: FAMOTIDINE 20 MG TABLET PO SCH (21:23)
[2019-12-09] MEDS: LACTATED RINGERS 1,000 ML IV SCH (02:55)
[2019-12-09 05:23] LABS: BASOPHILS # (AUTO) 0.1 10^3/uL (0.0-0.1); BASOPHILS % (AUTO) 1.3 %; EOSINOPHILS # (AUTO) 0.3 10^3/uL (0.0-0.7); EOSINOPHILS % (AUTO) 7.6 %; HGB - HEMOGLOBIN 9.2 g/dL (12.0-16.0); LYMPHOCYTES # (AUTO) 0.8 10^3/uL (1.5-3.5); LYMPHOCYTES % (AUTO) 18.3 %; MEAN CORPUSCULAR HEMOGLOBIN 32.7 pg (27.0-31.0); MEAN CORPUSCULAR HGB CONC 32.5 g/dL (32.0-36.0); MEAN CORPUSCULAR VOLUME 100.7 fL (81.0-99.0); MEAN PLATELET VOLUME 11.7 fL (7.9-10.8); MONOCYTES # (AUTO) 0.8 10^3/uL (0.0-1.0); MONOCYTES % (AUTO) 17.6 %; NEUTROPHILS # (AUTO) 2.5 10^3/uL (1.5-6.6); NEUTROPHILS % (AUTO) 54.8 %; PLT - PLATELET COUNT 93 10^3/uL (130-450); RED BLOOD COUNT 2.81 10^6/uL (4.20-5.40); RED CELL DISTRIBUTION WIDTH 15.9 % (12.0-15.0); WHITE BLOOD COUNT 4.5 x10^3/uL (4.8-10.8)
[2019-12-09 05:28] LABS: CALCIUM 7.7 mg/dL (8.5-10.3); CREATININE 0.9 mg/dL (0.4-1.0)
[2019-12-09 05:58] LABS: FOLATE 23.01 ng/mL (5.90 - >24.8)
[2019-12-09] MEDS ORDERED: CYANOCOBALAMIN 500 MCG TABLET PO SCH (09:00)
[2019-12-09] MEDS ORDERED: NON FORMULARY MED (Lenalidomide [Revlimid] 10 MG) PO SCH (09:00)
[2019-12-09] MEDS: FAMOTIDINE 20 MG TABLET PO SCH (09:15)
[2019-12-09] MEDS: SODIUM CHLORIDE FLUSH 0.9% 10 ML SYRINGE IVP SCH (09:15)
--- NOTE | 2019-12-09 11:43 | Discharge Plan ---
Discharge Plan Problem Reviewed?: Yes Disposition: Home, Self Care Condition: Fair Diet: Regular Activity Restrictions: Activity as Tolerated Shower Restrictions: No Driving Restrictions: Yes (You may no longer drive a vehicle, due to frequent falls and hearing loss) Instruction Topics: Falls Preventing, Bradycardia Health Concerns: You were here in the hospital to evaluate a fall. Subsequently we learned that you have had recurrent falls. Your heart rate was documented excessively low, with a rate in the 30s. Since you have been here the heart rate is mostly in the 40s and does rise into the 60s with activity, which is good. You were once on a medicine called Metoprolol, and you may still have been taking it by accident recently. Please make sure that someone checks your bottles and eliminate your Metoprolol entirely from your daily medications, since it slows down the pulse. You may no longer drive a vehicle because of your profound hearing loss and because of your frequent falls and poor memory. If you are stopped and found to be driving a vehicle, with this medical restriction in place, you could be arrested! The falls are possibly related to a dangerously low heart rate and you need further evaluation for a possible permanent pacemaker implant. You need referral to a [facility] for further evaluation and management. You are also anemic which could be adding to dizziness. The cause of your anemia is B12 deficiency. You have been started on a daily B12 vitamin supplement. The prescription has been sent to your [facility] pharmacy. You should stop taking the 325 mg dose aspirin 4 times a day. You should only be taking 1 adult dose aspirin daily. Refer to your medication list. You should stop taking the Revlimid temporarily because it can add to dizziness. It should only be restarted when okay to do so by your Oncologist Plan of Treatment: As above. Care Goals: Improvement in symptoms and stabilization are the goals. Assessment: The printed instructions were given to the patient. Her was also informed of the instructions. Her son-in-law was also called and was told the above instructions. No Smoking: If you smoke, Please STOP! Call for help. Follow-up with: Daniel Padilla DO [Primary Care Provider] -
--- NOTE | 2019-12-09 11:56 | PHARMACY PROGRESS NOTE ---
- Best Possible Medication History Admit Date and Time: 12/08/19 1524 Processed by: Pharmacy Medication History completed: Yes Patient Interview: Completed Secondary Source(s): Insurance records As the person ultimately responsible for medication therapy, providers are able to order a medication from an existing home medication list in [facility] via the "Reconcile Routine" prior to Confirmation of that medication by field support technician. Such practice is discouraged except when the physician, in their clinical judgment, deems that a medical need exists for a medication without regard to previous use.
[2019-12-09 12:30] VITALS: BP 119/38
--- NOTE | 2019-12-09 14:36 | DISCHARGE SUMMARY ---
Discharge Summary Admit Date: 12/08/19 Discharge Date: 12/09/19 Discharging Provider: Dr Lisa Phillips Primary Care Provider: Dr Daniel Padilla and Dr Lei Varela (Oncologist) Code Status: Attempt Resuscitation Condition at Discharge: Fair Discharge Disposition: 01 Home, Self Care - HPI History of Present Illness: This is an 84-year-old white female with a history of multiple myeloma on Revlimid for many years, followed by Oncology at [facility]. She also has a history of being BELKOFSKI, uses bilateral hearing aides. She was brought to the emergency room by ambulance after her heard her fall in another room, and he called an ambulance. In the ER, her evaluation with imaging showed no stroke, or trauma, but her heart rate was documented in the 30's and there was a question of wether she was still taking a prescription of Metoprolol. She was placed in Observation status, on telemetry, for presumed symptomatic bradycardia and to allow any metoprolol to wash out. - HOSPITAL COURSE Hospital Course: 1) Symptomatic bradycardia She was kept on telemetry. Heart rates did not drop into the 30s again, they were in the mid 40s to 60 at rest and she had appropriate increase in heart rate to the 60s with standing. There were no orthostatic changes. Troponin-hs were 23 and 21. An Echo was done that showed preserved LV and RV contractility. There was concerned that she may be taking an old Metoprolol dose at home creating the heart rate of 30 and the falling. Her and son-in-law were both advised to check her medication pile and throw out any Metoprolol tablets or bottles. The patient still needs work-up for needing a potential pacemaker for a backup rate; she will need referral to a Software Asset Management Analyst for this evaluation, starting with an outpatient Holter monitor. 2) Recurrent falls The presenting symptom was a fall that occurred in the house. On the following day, we learned that she has had many falls at home, which she and the thought was her "tripping while walking outside to go gardening". The has needed to lift her with a gait belt according to the history that was later obtained. The patient did not have orthostatic BP drops while here. Perhaps her vitamin B12 deficiency (see below) is causing neuropathy and B12 replacement doses were prescribed. She was also advised to stop using Revlimid because it can cause dizziness in 20% of patients. It should be only okayed to restart by her Oncologist. Patient was also told that she may no longer drive a vehicle because of her poor memory, severe hard of hearing, severe bradycardia and recurrent falls that could lead to syncope behind the wheel of a car. 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 Her and son-in-law were told of this new driving restriction, which they agreed with. 3) Hx of multiple myeloma Revlimid is advised to be stopped (see above). 4) Macrocytic anemia Hemoglobin at admission was 11.6. The following day it was 9.2 and MCV 101. She was 3 L total positive and fluid balance during this hospitalization. She was checked for B12 and folate deficiency as well as iron deficiency. 5) Vitamin B12 deficiency B12 level was low therefore she was started on vitamin B12 500 mcg p.o. daily. At the time of discharge, her stated he had already bought for her OTC strength B12 supplements, but that supplement was not on her reconciled list that our pharmacist obtained. She was discharged home with prescription- strength vitamin B12 to take daily. 6) Poor memory Patient initially stated that the fall in the kitchen was her first fall ever. Later we learned that she has had multiple falls. Perhaps she is embarrassed to discuss these or has simply forgotten them. Her and son-in-law both concurred that her memory has been worsening. This is another important reason that the driving restriction has been put in place. 7) BEL[place]FSKI Patient requires bilateral hearing aids and even with these she needs to read lips which is not always accurate, which I witnessed. This is also one of the reasons that the driving restriction has been put in place. - ALLERGIES Allergies/Adverse Reactions: Allergies Allergy/AdvReac Type Severity Reaction Status Date / Time acetaminophen [From Tylenol] Allergy Unknown Verified 12/08/19 11:43 amoxicillin [Amoxicillin] Allergy Unknown Verified 12/08/19 11:43 codeine Allergy Respiratory Verified 12/08/19 11:43 doxycycline Allergy Respiratory Verified 12/08/19 11:43 doxylamine Allergy Respiratory Verified 12/08/19 11:43 erythromycin base Allergy Respiratory Verified 12/08/19 11:43 [Erythromycin Base] fluticasone propionate * Allergy Unknown Verified 12/08/19 11:43 [From Flonase] hydromorphone HCl * Allergy Unknown Verified 12/08/19 11:43 [From Dilaudid] latex Allergy Unknown Verified 12/08/19 11:43 levofloxacin Allergy Respiratory Verified 12/08/19 11:43 methadone [Methadone] Allergy Respiratory Verified 12/08/19 11:43 morphine Allergy Respiratory Verified 12/08/19 11:43 nitroglycerin Allergy Unknown Verified 12/08/19 11:43 omeprazole Allergy Respiratory Verified 12/08/19 11:43 oxycodone HCl * Allergy Respiratory Verified 12/08/19 11:43 [From OxyContin] Penicillins Allergy Respiratory Verified 12/08/19 11:43 petrolatum,white * Allergy Respiratory Verified 12/08/19 11:43 [From Petroleum Jelly] propoxyphene HCl * Allergy Respiratory Verified 12/08/19 11:43 [From Darvon] Sulfa (Sulfonamide Allergy Respiratory Verified 12/08/19 11:43 Antibiotics) tramadol Allergy Respiratory Verified 12/08/19 11:43 "all morphine derivatives" Allergy Unknown Uncoded 12/08/19 11:43 dust Allergy Unknown Uncoded 12/08/19 11:43 mold Allergy Unknown Uncoded 12/08/19 11:43 smoke Allergy Unknown Uncoded 12/08/19 11:43 - MEDICATIONS Home Medications: Ambulatory Orders Medication Instructions Recorded Confirmed Rosuvastatin Calcium 5 mg PO QPM 10/06/16 12/08/19 Aspirin 81 mg PO OAW 12/09/19 12/09/19 Lenalidomide [Revlimid] 10 mg PO DAILY 12/09/19 12/09/19 - PHYSICAL EXAM AT DISCHARGE General Appearance: positive: No acute distress, Alert, Other (Cachectic.) Eyes Bilateral: positive: Normal inspection ENT: positive: Other (BELKOFSKI, even with hearing aides) Neck: positive: Nml inspection Respiratory: positive: No respiratory distress Cardiovascular: positive: Regular rate & rhythm, No murmur, Bradycardia Abdomen: positive: Non-tender, No distention Extremities: positive: No pedal edema Neurologic/Psychiatric: positive: Oriented x3, Other (Poor memory. Very BEL[place]FSKI.) - LABS Result Diagrams: 12/09/19 05:10 12/09/19 05:10 - DIAGNOSTIC IMAGING Diagnostic Imaging Results: Final report reviewed - FOLLOW UP Follow Up: See PCP DAVEY for referral to Cardiology and also have follow-up with her established Oncologist. - TIME SPENT Time Spent in Discharge (Minutes): 45
== END 2019-12-09 14:42 | disposition home or self-care (01) ==
LOC: EDUNIT# → ED 11:33 → MS2 15:24
PROVIDERS: ADMIT Internal Medicine; ATTEND Internal Medicine
DX: R00.1 Bradycardia, unspecified (principal); Z91.81 History of falling; C90.00 Multiple myeloma not having achieved remission; D53.9 Nutritional anemia, unspecified; E53.8 Deficiency of other specified B group vitamins; R41.3 Other amnesia; H91.93 Unspecified hearing loss, bilateral; I25.10 Atherosclerotic heart disease of native coronary artery without angina pectoris; Z79.899 Other long term (current) drug therapy; Z79.82 Long term (current) use of aspirin
CPT/HCPCS: 36415; 71045; 80048; 80053; 81001; 82607; 82746; 83605; 83690; 84484; 85025; 93005; 93306; 97161; 97165; A9270; G0378; J7120; 81003; 87086; 96360; 96361; 99285